=== PATIENT | female | born 1960 | race Caucasian/White ===

== ENCOUNTER → 2018-12-18 | Outpatient (CLI) | payer BC, OTHER ==
[2015-03-15 13:18] VITALS: BP 131/59
[~2018-12-18] MED LIST: ATOR40TA59 PO; AZIT250T6 PO; FLUO20CA16 PO; LEVO112T2 PO; LEVO125T5 PO; MELO15TA23 PO; METO25TA4 PO; NAPR500T8 PO; PANT40TA3 PO; REGADENOSON 0.4 MG/5 ML DISP.SYRIN. IV ONE
--- NOTE | 2018-12-18 09:29 | CARD ---
MR#: [id number] Date of Study: 12/18/2018 Ordering Physician: MARLINE ROMERO, Referring Physician: MARLINE ROMERO Tech: Maci Mak RDCS APPROVED REPORT EXAM: Two-dimensional and M-mode echocardiogram with Doppler and color Doppler. Other Information Quality : Good INDICATION Chest Pain 2D DIMENSIONS RVDd2.1 (2.9-3.5cm)Left Atrium(2D)3.3 (1.6-4.0cm) IVSd1.0 (0.7-1.1cm)Aortic Root(2D)2.8 (2.0-3.7cm) LVDd4.6 (3.9-5.9cm)LVOT Diameter1.9 (1.8-2.4cm) PWd1.0 (0.7-1.1cm)LVDs3.0 (2.5-4.0cm) FS (%) 34.9 %SV63.7 ml LVEF(%)64.2 (>50%) Aortic Valve AoV Peak Kirby.140.1cm/sAoV VTI30.7cm AO Peak GR.7.8mmHgLVOT Peak Kirby.96.9cm/s AO Mean GR.4mmHgAVA (VMAX)1.88cm2 ARVIND (VTI)2.00cm2 Mitral Valve MV E Cmspspwz540.4cm/sMV DECEL [id number] MV A Lamiejla18.2cm/sE/A Ratio1.4 Tricuspid Valve TR P. Nibvklfu626tx/sRAP VZLVCYMB1waVb TR Peak Gr.50ngUkVNQP86mjDd Pulmonary Vein S1 Nowmupse78.7cm/sD2 Fucirldv31.2cm/s LEFT VENTRICLE The left ventricle is normal size. There is normal left ventricular wall thickness. The left ventricu lar systolic function is normal and the ejection fraction is within normal range. The Ejection Fracti on is 55-60%. There is normal LV segmental wall motion. The left ventricular diastolic function and f illing is normal for age. RIGHT VENTRICLE The right ventricle is normal size. The right ventricular systolic function is normal. ATRIA The left atrium size is normal. The right atrium size is normal. The interatrial septum is intact wit h no evidence for an atrial septal defect or patent foramen ovale as noted on 2-D or Doppler imaging. AORTIC VALVE The aortic valve is normal in structure and function. Doppler and Color Flow revealed no significant aortic regurgitation. There is no significant aortic valvular stenosis. MITRAL VALVE The mitral valve is calcified but opens well. There is no evidence of mitral valve prolapse. There is no mitral valve stenosis. Doppler and Color-flow revealed mild mitral regurgitation. TRICUSPID VALVE The tricuspid valve is normal in structure and function. Doppler and Color Flow revealed mild tricusp id regurgitation. The PA pressure was estimated at 32 mmHg. There is no tricuspid valve stenosis. PULMONIC VALVE Doppler and Color Flow revealed trace to mild pulmonic valvular regurgitation. There is no pulmonic v alvular stenosis. GREAT VESSELS The aortic root is normal in size. The ascending aorta is normal in size. The IVC is normal in size a nd collapses >50% with inspiration. PERICARDIAL EFFUSION There is no evidence of significant pericardial effusion. Critical Notification Critical Value: No <Conclusion> The left ventricular systolic function is normal and the ejection fraction is within normal range. Th e Ejection Fraction is 55-60%. There is normal LV segmental wall motion. Doppler and Color-flow revealed mild mitral regurgitation. Doppler and Color Flow revealed mild tricuspid regurgitation. The PA pressure was estimated at 32 mmH g. Signed by : Satnam Arreola, Electronically Approved : 12/18/2018 09:26:59
--- NOTE | 2018-12-18 12:09 | RAD ---
MR#: [id number] Date of Study: 12/18/2018 Ordering Physician: MARLINE ROMERO Referring Physician: JADA DECKER Tech: RT Ok Peterson) (N) APPROVED REPORT Test Type: Pharmacological Stress Nurse/Tech: Deirdre Lowery R.N. Test Indications: C/P Cardiac History: recent smoker, family cardiac hx Medications: See Electronic Medical Record Medical History: See Electronic Medical Record Resting ECG: SB Resting Heart Rate: 50 bpm Resting Blood Pressure: 136/66mmHg Pretest Chest Pain: No chest pain Nurse/Tech Notes S1S2, lungs CTA Consent: The procedure was explained to the patient in lay terms. Informed consent was witnessed. Josue eout was entered into [place] [employer]. History and Stress Test performed by RT Ok Peterson) (N) Pharm. Details Pharmacologic stress testing was performed using 0.4mg per 5ml of regadenoson given intravenously ove r 7-10 seconds. Stress Symptoms some SOB and nausea- POST EXERCISE Reason for Termination: Infusion complete Max HR: 94 bpm Max Blood Pressure: 129/59mmHg Blood Pressure response to exercise: Normal blood pressure response during stress. Heart Rate response to exercise: wnl Chest Pain: No. Arrhythmia: No. ST Change: Yes. very brief scant ST depression <1mm in leads V3-V5 INTERPRETATION Stress EKG Conclusion: Baseline EKG showed sinus rhythm. No ischemic changes at peak stress. No arr hythmias. Imaging Protocol IMAGE PROTOCOL: Rest Tc-99m/stress Tc-99m 1 day Rest: Stress: Viability: Radiopharm.Tc99m PluyqbewkDx15o Sestamibi Dose10.2mCi 33.3mCi Duration 13min. 13min. Img Date 12/18/2018 12/18/2018 Inj-Img Pyys71ghw. 60min. Rest Admin Site:IV - Right AntecubitalAdministrator:RT Ok Peterson)(N) Stress Admin Site: IV - Right AntecubitalAdministrator: JULIANN Tomlin STRESS DATA End Diast. Vol.83.0mlLVEDV index BSA47.0ml End Syst. Vol.21.0mlLVESV index BSA12.0ml Myocardial Rdyz822.0gEject. Wvmtpbuk10.0% Stress Scores Regional WT0.00Summed WT0.00 Regional WM0.00Summed WM0.00 Study quality was good. Left Ventricular size was Normal at Rest and Stress. Lung uptake was . Left Ventricular ejection fraction is 75%. The rest and stress images show normal perfusion, normal contraction and thickening. LV Perf. Quant 17 Seg. SSS0.00 17 Seg. SRS0.00 17 Seg. SDS0.00 Stress Defect Extent (% LAD)0.00Rest Defect Extent (% LAD)0.00Rev. Defect Extent (% LAD)0.00 Stress Defect Extent (% LCX) 0.00Rest Defect Extent (% LCX)0.00Rev. Defect Extent (% LCX)0.00 Stress Defect Extent (% RCA)0.00Rest Defect Extent (% RCA)0.00Rev. Defect Extent (% RCA)0.00 Stress Defect Extent (% KELLY)0.00Rest Defect Extent (% KELLY)0.00Rev. Defect Extent (% KELLY)0.00 Conclusion 1. Regadenoson cardioisotope stress test did not show any evidence of ischemia or infarct. 2. Normal left ventricular systolic function with ejection fraction calculated at 75%. 3. Low risk for cardiac events. Signed by : Marline Romero, Electronically Approved : 12/18/2018 12:07:29
== END | disposition home or self-care (01) ==
LOC: NM 09:25
PROVIDERS: ATTEND Internal Medicine Cardiovascular Disease
DX: I08.1 Rheumatic disorders of both mitral and tricuspid valves (principal)
CPT/HCPCS: 78452; 93017; 93306; 96374; A9500; J2785

== ENCOUNTER → 2021-01-02 | Outpatient (CLI) | payer BC ==
[2015-03-15 13:18] VITALS: BP 131/59
[~2021-01-02] MED LIST changes: -PANT40TA3 PO; +PANT40TA77 PO; -REGADENOSON 0.4 MG/5 ML DISP.SYRIN. IV ONE
--- NOTE | 2021-01-02 09:31 | CARD ---
MR#: [id number] Date of Study: 01/02/2021 Ordering Physician: MARLINE ROMERO, Referring Physician: MARLINE ROMERO Tech: Vi Liz [facility] APPROVED REPORT EXAM: Two-dimensional and M-mode echocardiogram with Doppler and color Doppler. Other Information Quality : AverageHR: 52bpm Rhythm : NSR INDICATION Hypertension/HCVD 2D DIMENSIONS RVDd3.0 (2.9-3.5cm)Left Atrium(2D)3.9 (1.6-4.0cm) IVSd0.8 (0.7-1.1cm)Aortic Root(2D)2.9 (2.0-3.7cm) LVDd4.5 (3.9-5.9cm)LVOT Diameter2.1 (1.8-2.4cm) PWd0.9 (0.7-1.1cm)LVDs2.7 (2.5-4.0cm) FS (%) 39.2 %SV64.1 ml LVEF(%)69.8 (>50%) Aortic Valve AoV Peak Kirby.156.5cm/sAoV VTI34.0cm AO Peak GR.0.0mmHgLVOT Peak Kirby.121.3cm/s AO Mean GR.4mmHgAVA (VMAX)2.67cm2 Mitral Valve MV E Fhwoebzv158.1cm/sMV DECEL FSHK613kn MV A Scxophsp41.1cm/sE/A Ratio1.4 Pulmonary Valve PV Peak Hetrsgwr478.4cm/s Tricuspid Valve TR P. Vaxmjqyb450gm/sTR Peak Gr.22mmHg Pulmonary Vein S1 Wdqskbiy56.7cm/sD2 Gqimcjds49.3cm/s PVa ealkyvyn166lxyd LEFT VENTRICLE The left ventricle is normal size. There is normal left ventricular wall thickness. The left ventricu lar systolic function is normal. The estimated ejection fraction 55-60%. There is normal LV segmental wall motion. RIGHT VENTRICLE The right ventricle is normal size. There is normal right ventricular wall thickness. The right ventr icular systolic function is normal. ATRIA The left atrium size is normal. The right atrium size is normal. The interatrial septum is intact wit h no evidence for an atrial septal defect or patent foramen ovale as noted on 2-D or Doppler imaging. AORTIC VALVE The aortic valve is normal in structure and function. Doppler and Color Flow revealed no significant aortic regurgitation. There is no significant aortic valvular stenosis. MITRAL VALVE The mitral valve is normal in structure and function. There is no evidence of mitral valve prolapse. There is no mitral valve stenosis. Doppler and Color-flow revealed trace to mild mitral regurgitation . TRICUSPID VALVE The tricuspid valve is normal in structure and function. Doppler and Color Flow revealed mild tricusp id regurgitation. Estimated PAP 25 mmHg. PULMONIC VALVE The pulmonary valve is normal in structure and function. Doppler and Color Flow revealed no pulmonic valvular regurgitation. GREAT VESSELS The aortic root is normal in size. The ascending aorta is normal in size. The pulmonary artery is nor mal. The IVC is normal in size and collapses >50% with inspiration. PERICARDIAL EFFUSION There is no evidence of significant pericardial effusion. Critical Notification Critical Value: No <Conclusion> The left ventricular systolic function is normal. The estimated ejection fraction 55-60%. There is normal LV segmental wall motion. Trace to mild mitral regurgitation. Mild tricuspid regurgitation. Estimated PAP 25 mmHg. There is no evidence of significant pericardial effusion. Signed by : Marline Romero, Electronically Approved : 01/02/2021 09:30:46
== END ==
LOC: ECHO 07:34
PROVIDERS: ATTEND Internal Medicine Cardiovascular Disease
DX: I08.1 Rheumatic disorders of both mitral and tricuspid valves (principal); I10 Essential (primary) hypertension
CPT/HCPCS: 93306

== ENCOUNTER 2021-02-19 10:32 | Emergency (ER) | payer BC ==
[~2021-02-19] VITALS: Ht 160 cm; Wt 70.5 kg
[2021-02-19] MEDS ORDERED: HYDROcodone/APAP 5/325MG 1 TAB TABLET PO ONE (12:15)
--- NOTE | 2021-02-19 12:42 | RAD ---
Study: 1. XR SHOULDER_LEFT 2+ VIEWS 2. XR LEFT CLAVICLE 3. XR HUMERUS_LT 2 VIEWS Indication: Pain. Fall from standing. Limited range of motion. Comparison: None. Findings: Left clavicle: No acute fracture the left clavicle. Normal coracoclavicular distance. Left shoulder: Acute proximal humerus fracture with well visualized involvement of the surgical neck and greater tub erosity. No significant displacement across the surgical neck but with mild impaction. The greater tu berosity fragment is displaced laterally by approximately 5 mm. Glenohumeral and acromioclavicular ciro int alignment is maintained. Left humerus: No acute fracture the more distal humerus. Incompletely assessed elbow joint. Impression: Left clavicle/shoulder/humerus: Acute proximal humerus fracture with involvement of the surgical neck and greater tuberosity. Mild im paction across the surgical neck without significant displacement. The greater tuberosity fragment is displaced laterally by approximately 0.5 cm. Intact clavicle and more distal humerus. Electronically signed by: DANIA ZEE MD (02/19/2021 12:39 PM) [facility]
--- NOTE | 2021-02-19 12:58 | ED.ADGEN ---
Past Medical History Past Medical History: Anxiety, Arthritis, Hypothyroid Past Surgical History: Other Additional Past Surgical Histo: Lung infection Smoking Status: Current Every Day Smoker Alcohol Use: None Drug Use: None General Adult EDM: Chief Complaint: MECHANICAL FALL HPI: HPI: Patient is a 60 year old female who presents emergency department with complaints of left shoulder, left upper arm, and left clavicle pain after she tripped on a rug and fell into a wall this morning. Patient denies any syncope, dizziness, chest pain, or shortness of breath prior to and after the fall. She denies any head, neck, or back pain after fall. Patient states that she has shooting pain down her left arm and that her lateral left fingers feel cold. She currently rates the pain 10 out of 10 on the pain scale, she denies any alleviating factors, the pain is worse with movement or palpation. Patient reports that she is right-handed. Review of Systems: Review of Systems: Complete ROS is negative unless otherwise noted in HPI. Current Medications: Current Medications Medications (Trade) Dose Ordered Sig/Adrián Start Time Stop Time Status Last Admin Dose Admin Acetaminophen/ Hydrocodone Bitart (Lortab 5/325) 1 tab 1X ONCE 02/19/21 12:15 02/19/21 12:16 DC 02/19/21 12:46 1 TAB Allergies: Allergies: Allergies Coded Allergies Type Severity Reaction Last Updated Verified codeine Adverse Reaction Intermediate nausea 03/15/15 No Physical Exam: PE: See Above Constitutional: Well developed, well nourished, no acute distress, non-toxic appearance. [] HENT: Normocephalic, atraumatic, bilateral external ears normal, nose normal. [] Eyes: PERRLA, EOMI, conjunctiva normal, no discharge. [] Neck: Normal range of motion, no stridor. [] Cardiovascular:Heart rate regular rhythm Lungs & Thorax: Respirations even and unlabored, no retractions, no respiratory distress; tenderness to palpation of the lateral clavicle, no crepitus, no tenting Skin: Warm, dry, no erythema, no rash, bruising to left lateral shoulder, no abrasion. [] Extremities: LUE: Tenderness to palpation over the proximal humerus with 2+ edema, no obvious deformity, no crepitus, 2+ radial pulse, 2+ ulnar pulse, cap refill less than 2 seconds. No cyanosis, ROM due to pain Neurologic: Alert and oriented X 3, normal sensation, no focal deficits noted. [] Psychologic: Affect normal, judgement normal, mood normal. [] Current Patient Data: Vital Signs: Vital Signs Date Time Temp Pulse Resp B/P (MAP) Pulse Ox O2 Delivery O2 Flow Rate FiO2 02/19/21 13:56 56 16 151/66 (94) 98 Room Air 02/19/21 12:10 97.9 97.9 EKG: EKG: [] Heart Score: C/O Chest Pain: No Risk Scores: Score 0 - 3: 2.5% MACE over next 6 weeks - Discharge Home Score 4 - 6: 20.3% MACE over next 6 weeks - Admit for Clinical Observation Score 7 - 10: 72.7% MACE over next 6 weeks - Early Invasive Strategies Radiology/Procedures: Radiology/Procedures: PROCEDURE: SHOULDER 2+V LEFT Study: 1. XR SHOULDER_LEFT 2+ VIEWS 2. XR LEFT CLAVICLE 3. XR HUMERUS_LT 2 VIEWS Indication: Pain. Fall from standing. Limited range of motion. Comparison: None. Findings: Left clavicle: No acute fracture the left clavicle. Normal coracoclavicular distance. Left shoulder: Acute proximal humerus fracture with well visualized involvement of the surgical neck and greater tuberosity. No significant displacement across the surgical neck but with mild impaction. The greater tuberosity fragment is displaced laterally by approximately 5 mm. Glenohumeral and acromioclavicular joint alignment is maintained. Left humerus: No acute fracture the more distal humerus. Incompletely assessed elbow joint. Impression: Left clavicle/shoulder/humerus: Acute proximal humerus fracture with involvement of the surgical neck and greater tuberosity. Mild impaction across the surgical neck without significant displacement. The greater tuberosity fragment is displaced laterally by approximately 0.5 cm. Intact clavicle and more distal humerus. Electronically signed by: DANIA ZEE MD (02/19/2021 12:39 PM) [facility] Course & Med Decision Making: Course & Med Decision Making Pertinent Labs and Imaging studies reviewed. (See chart for details) [id number] spoke with Dr. Shah about the patient's, Dr. Shah reviewed the patient's x-rays. He reports that this is nonoperative injury. Recommends the patient be placed in a sling. Will prescribe hydrocodone and have the patient follow-up with him in his office. 60-year-old female presents emergency room with complaints of left upper arm and shoulder pain after a fall. X-ray revealed a fracture of the proximal left humerus. The patient was placed in a Velcro arm sling and was given hydrocodone. Patient became nauseated and lightheaded with the hydrocodone. She was given a sandwich tray reported feeling better after eating. Vital signs are stable in the emergency department. Prescription was written for hydrocodone. I instructed the patient call 's office in the morning for follow-up. Instructed her to return to the ER if symptoms worsen or fever develop. Patient and her verbalized an understanding of home care, medications, follow-up, and return to ED instructions and were in agreement with the plan of care. Dragon Disclaimer: Dragon Disclaimer: This electronic medical record was generated, in whole or in part, using a voice recognition dictation system. Departure Departure Impression: Primary Impression: Left humeral fracture Additional Impression: Fall Disposition: 01 DC HOME SELF CARE/HOMELESS Condition: STABLE Referrals: ISHA GREY MD (PCP) MICH SHAH MD Patient Instructions: Humerus Fracture, Treated with Immobilization, [id number]-[id number] Additional Instructions: Fill prescription(s) and use as directed. Recommend application of ice, elevation, and rest of affected extremity. Wear the sling that was placed until follow up appointment with Dr. Shah, call in the morning for an appointment this week. Return to the ER if your symptoms worsen. Scripts Hydrocodone Bit/Acetaminophen (HYDROCODONE-APAP 5-325 ) 1 Tab Tablet 1 TAB PO PRN Q6HRS PRN for PAIN for 5 Days, #20 TAB 0 Refills Prov: ARTI ZAVALA [employer] 02/19/21 Splinting Splinting : Location: Left arm Pre-Made Type: velcro Pre-Proc Neuro Vasc Exam: normal (Sling) Post-Proc Neuro Vasc Exam: normal, unchanged from pre-exam Progress Patient reports relief of discomfort with application of sling. Problem Qualifiers Primary Impression: Left humeral fracture Encounter type: initial encounter Humerus Location: proximal Fracture type: closed Fracture morphology: other fracture Fracture alignment: nondisplaced Qualified Codes: S42.295A - Other nondisplaced fracture of upper end of left humerus, initial encounter for closed fracture Additional Impression: Fall Encounter type: initial encounter Qualified Codes: W19.XXXA - Unspecified fall, initial encounter ARTI ZAVALA APRN Feb 19, 2021 12:57
[2021-02-19] MEDS ORDERED: HYDR-2761 PO (13:26)
[2021-02-19 13:56] VITALS: BP 151/66
== END 2021-02-19 14:03 | disposition home or self-care (01) ==
LOC: ER 10:32
DX: S42.212A Unspecified displaced fracture of surgical neck of left humerus, initial encounter for closed fracture (principal); M25.512 Pain in left shoulder; F41.9 Anxiety disorder, unspecified; M19.90 Unspecified osteoarthritis, unspecified site; E03.9 Hypothyroidism, unspecified; F17.200 Nicotine dependence, unspecified, uncomplicated; Z98.890 Other specified postprocedural states; W18.09XA Striking against other object with subsequent fall, initial encounter; Y93.89 Activity, other specified; Y92.89 Other specified places as the place of occurrence of the external cause; Y99.8 Other external cause status
CPT/HCPCS: 73000; 73030; 73060; 99284; A4565

== ENCOUNTER → 2021-06-02 | Outpatient (CLI) | payer BC ==
[~2021-06-02] MED LIST changes: +HYDR-2761 PO
--- NOTE | 2021-06-03 08:45 | KCIC ---
Exam Date: 06/02/2021 1:25 PM MRI LEFT UPPER EXTREMITY JOINT WITHOUT CONTRAST Indication: Reason: LEFT SHOULDER PAIN / Spl. Instructions: Spoke to patient about the motion. / Hist ory: Fx humerus 3 mths ago, fall. Lt sh pain.. TECHNIQUE: Routine multiplanar MR imaging of the shoulder was performed without contrast. COMPARISON: Radiographs from May 23, 2021 FINDINGS: Marked motion artifact limits evaluation. Increased signal in the supraspinatus and infraspinatus tendons is consistent with tendinopathy. No full-thickness rotator cuff tendon tear is identified. The supraspinatus, infraspinatus, teres mi nor and subscapularis tendons are intact. Rotator cuff musculature demonstrates normal signal and bu lk. Mild degenerative changes are seen at the AC joint. There is an intact type I acromion. Small fluid is seen in the subacromial/subdeltoid bursa consistent with mild bursitis. Long head of the biceps tendon is intact. Degenerative signal is seen in the labrum, though lack of intra-articular contrast limits evaluation. Subacute healing fracture of the proximal humerus is again seen, similar in alignment and position co mpared to the prior exams. There is no evidence for avascular necrosis at this time. Moderate degen erative changes are present at the glenohumeral joint. No new acute fractures are identified. IMPRESSION: No avascular necrosis of the proximal humerus at this time. Subacute healing fracture of the proxima l humerus appears similar in alignment and position compared to the prior exams. No interval new acu te fractures are identified. Supraspinatus and infraspinatus tendinopathy without full-thickness rotator cuff tendon tear. Mild subacromial/subdeltoid bursitis. Electronically signed by: Joey Gaspar MD (06/03/2021 8:42 AM) [facility]
== END ==
LOC: KCIC MRI 13:00
PROVIDERS: ATTEND Physician Assistant
DX: S46.012A Strain of muscle(s) and tendon(s) of the rotator cuff of left shoulder, initial encounter (principal); S42.292D Other displaced fracture of upper end of left humerus, subsequent encounter for fracture with routine healing; M19.012 Primary osteoarthritis, left shoulder; X58.XXXD Exposure to other specified factors, subsequent encounter; M75.52 Bursitis of left shoulder; W19.XXXA Unspecified fall, initial encounter; Y93.89 Activity, other specified; Y92.89 Other specified places as the place of occurrence of the external cause; Y99.8 Other external cause status
CPT/HCPCS: 73221

== ENCOUNTER → 2021-07-07 | Outpatient (CLI) | payer BC ==
--- NOTE | 2021-07-07 09:15 | KCIC ---
EXAM: CHEST 2 VIEWS. HISTORY: Shortness of breath. COMPARISON: 03/14/2015. FINDINGS: Frontal and lateral views of the chest are obtained. Opacity in the right lung base is chronic and likely reflects an epicardial fat pad or anterior diaph ragmatic eventration. More superiorly, there are mild interstitial and nodular opacities. Blunting of the right costophrenic angle is chronic and likely reflects scarring. The hemidiaphragms are not fla ttened. There is no pneumothorax or clear pleural effusion. The heart is not enlarged. There are athe rosclerotic calcifications of the aorta. There is a mild lower thoracic dextroscoliosis. Surgical cli ps project over the posterior mediastinum on the right. IMPRESSION: 1. Mild interstitial and nodular opacities in the right lung base may reflect chronic scarring or a m ild infiltrate. If there is evidence of active infection, follow-up to resolution is suggested. Electronically signed by: Ashley Bishop MD (07/07/2021 9:13 AM) [id number]
== END ==
LOC: KCIC 08:27
PROVIDERS: ATTEND Family Medicine
DX: R91.1 Solitary pulmonary nodule (principal); R05 Cough; I70.0 Atherosclerosis of aorta
CPT/HCPCS: 71046

== ENCOUNTER → 2021-07-20 | Outpatient (CLI) | payer BC ==
--- NOTE | 2021-07-20 13:33 | KCIC ---
EXAMINATION: CT Chest Without IV contrast. INDICATION:60 years, Female, follow-up abnormal chest radiograph, history of smoking. COMPARISON: None. TECHNIQUE: Spiral CT was obtained from the jugular notch through the posterior costophrenic recess. S agittal and coronal reformats were obtained. Exposure: One or more of the following individualized dose reduction techniques were utilized for thi s examination: 1. Automated exposure control 2. Adjustment of the mA and/or kV according to patient size 3. Use of iterative reconstruction technique. FINDINGS: LUNGS/PLEURA: Central airways are patent. Mild to moderate paraseptal emphysema. Right apical pleural thickening/scarring. No focal consolidation, pleural effusion or pneumothorax. There is a 1.4 cm nod ular opacity in the right middle lobe with adjacent linear scarring/atelectasis. Right basilar subseg mental atelectasis versus scarring. MEDIASTINUM: No pathologic mediastinal or hilar adenopathy. The thoracic aorta and pulmonary arteries are normal in caliber. The heart is normal in size. No pericardial effusion. No detectable calcified coronary atherosclerosis. The visualized thyroid and the esophagus are unremarkable. AXILLA/SOFT TISSUE: No supraclavicular or axillary adenopathy. Regional soft tissues are within haim l limits. UPPER ABDOMEN: The visualized upper abdomen appears unremarkable, within the limitation of noncontras t exam. BONES: No evidence of acute fractures or aggressive osseous lesions. IMPRESSION: 1. 1.4 cm nodular opacity in the right middle lobe with adjacent linear scarring/atelectasis. Findin gs may represent focal scarring/fibrosis. Recommend follow-up in 3-[address] chest to ensure s tability. 2. Mild to moderate paraseptal emphysema. Electronically signed by: Rita Gauthier MD (07/20/2021 1:31 PM) [facility]
== END ==
LOC: KCIC CT 12:33
PROVIDERS: ATTEND Family Medicine
DX: R91.1 Solitary pulmonary nodule (principal); J43.9 Emphysema, unspecified; R93.89 Abnormal findings on diagnostic imaging of other specified body structures
CPT/HCPCS: 71250

== ENCOUNTER → 2021-11-10 | Outpatient (CLI) | payer BC ==
--- NOTE | 2021-11-10 09:15 | KCIC ---
PQRS Compliance Statement: One or more of the following individualized dose reduction techniques were utilized for this examinat ion: 1. Automated exposure control 2. Adjustment of the mA and/or kV according to patient size 3. Use of iterative reconstruction technique CT THORAX WO 11/10/2021 8:22 AM Indication: Right middle lobe nodular opacity COMPARISON: None available. TECHNIQUE: Right middle lobe nodular opacity FINDINGS: Mild paraseptal pulmonary emphysema. Biapical pleural-parenchymal scarring, right greater than left. There is bandlike opacity identified along the lateral segment right middle lobe without a definite w ell-defined nodular component. Findings favor subsegmental atelectasis or scarring without significan t change since prior examination. Similar findings identified in the lateral basal segment right lowe r lobe. No new or enlarging solid noncalcified pulmonary nodules. No pleural effusions, pulmonary ves franky congestion or pneumothorax. Thyroid gland is normal in appearance. No pathologically enlarged tho racic lymph nodes within the limitations of noncontrast examination. Heart size within normal limits. Thoracic aorta is normal in course and caliber. Thoracic esophagus is normal. No suspicious osseous abnormality is identified. IMPRESSION: 1. Right middle lobe opacity appears more bandlike without a definite nodular component. Findings fav or subsegmental atelectasis or scarring. Findings are stable since prior examination. Electronically signed by: Carola Mendiola MD (11/10/2021 9:13 AM) [facility]
== END ==
LOC: KCIC CT 08:18
PROVIDERS: ATTEND Internal Medicine Pulmonary Disease
DX: J43.9 Emphysema, unspecified (principal); J98.4 Other disorders of lung; R93.89 Abnormal findings on diagnostic imaging of other specified body structures; Z87.891 Personal history of nicotine dependence
CPT/HCPCS: 71250